=== PATIENT | female | born 1935 | race Caucasian/White ===

== ENCOUNTER 2021-10-11 12:27 | Emergency (ER) | payer OTHER, BC ==
[2021-10-11 13:00] VITALS: BMI 23.8
[2021-10-11] MEDS ORDERED: SOTROVIMAB 500 MG in SODIUM CHLORIDE 100 ML IVPB ONE (13:00)
[2021-10-11 13:50] VITALS: TEMP 98.4
[2021-10-11 15:20] VITALS: BP 134/57; PULSE 74
== END 2021-10-11 15:36 | disposition home or self-care (01) ==
LOC: JCOVINFU 12:27
DX: U07.1 COVID-19 (principal)
CPT/HCPCS: 99284-25; M0247; Q0247